=== PATIENT | male | born 1960 | race Caucasian/White ===

== ENCOUNTER 2017-12-27 13:14 | Emergency (ER) | END 2017-12-27 13:52 | disposition home or self-care (01) ==

== ENCOUNTER 2019-02-05 12:58 | Emergency (ER) | payer OTHER ==
[~2019-02-05] VITALS: Wt 89.0 kg
[~2019-02-05 12:58] MED LIST: CEPH-443 PO; IBUP-1542 PO; OFLO5DRO7 RIGHT EAR; SULF1TAB31 PO
[2019-02-05 13:01] VITALS: BP 133/88; PULSE 74; RESP 20
[2019-02-05] MEDS ORDERED: LIDOCAINE 1%/EPI 30 ML INJ INJ STA (14:26)
[2019-02-05] MEDS ORDERED: LIDOCAINE 1%/EPI (1:100,000) (MDV) 20 ML INJ SCH (15:00)
== END 2019-02-05 15:44 | disposition home or self-care (01) ==
LOC: FTE 12:58
DX: L02.612 Cutaneous abscess of left foot (principal)
CPT/HCPCS: 10060; Z7502; Z7610

== ENCOUNTER 2019-02-08 12:25 | Emergency (ER) | payer SELFPAY ==
[~2019-02-08] VITALS: Ht 172.7 cm; Wt 88.7 kg
[2019-02-08 12:30] VITALS: BP 142/88; PULSE 68; RESP 18; Ht 172.7 cm; Wt 88.7 kg
== END 2019-02-09 01:00 | disposition left against medical advice (07) ==
LOC: FTE 12:25
DX: Z53.21 Procedure and treatment not carried out due to patient leaving prior to being seen by health care provider (principal)